=== PATIENT | female | born 1945 | race Caucasian/White ===

== ENCOUNTER 2016-12-24 15:17 | Inpatient (IN) | payer OTHER, MEDICARE ==
[~2016-12-24] VITALS: Ht 157.5 cm; Wt 65.7 kg
[~2016-12-24 15:17] MED LIST: CALC600T55 CHEW; OMEG340C PO; PRIN5TAB PO; ZETI10TA5 PO; ZOFR4TAB3 SL; [UNRECOGNIZED DRUG - CODE] PO
[2016-12-25] MEDS ORDERED: GEMF600T PO (09:23)
[2016-12-25] MEDS ORDERED: METO50TA11 PO (09:23)
[2016-12-25] MEDS ORDERED: ALPR0.25 PO (09:23)
[2016-12-25] MEDS ORDERED: DIPH25CA PO (09:23)
[2016-12-25] MEDS ORDERED: GLUC15009 PO (09:23)
[2016-12-25] MEDS ORDERED: NEXI20CA PO (09:23)
[2016-12-25] MEDS ORDERED: ZOLE5P IV (09:23)
[2016-12-25] MEDS ORDERED: ASPI1TAB69 PO (09:23)
[2016-12-25] MEDS ORDERED: GAS-125C3 PO (09:23)
[2016-12-28] VITALS (10 sets, daily range): BP systolic 107–163; BP diastolic 52–83; PULSE 80–114; RESP 16–18; TEMP 97.5–98; O2SAT 96–99
[2016-12-28] MEDS ORDERED: ceFAZolin 2 GM PREMIX 50 ML IV SCH (07:00)
[2016-12-28] MEDS ORDERED: CLINDAMYCIN 300 MG/NS 100 ML IV SCH ×2 (07:00)
[2016-12-28] MEDS ORDERED: METOPROLOL TARTRATE 25 MG TAB PO PRN (07:15)
[2016-12-28] MEDS ORDERED: INSULIN HUMAN REGULAR 1,000 UNITS/10 ML VIAL SQ PRN (07:15)
[2016-12-28] MEDS: LACTATED RINGER'S 1000 ML IV SCH (07:15)
[2016-12-28] MEDS ORDERED: SODIUM CHLORID 0.9% 500 ML IV SCH (07:15)
--- NOTE | 2016-12-28 07:50 | PD.HP.UP ---
H&P Update Note The Pre-Admit History and Physical Examination regarding the above named patient was reviewed (including, but not limited to, vital signs, heart, lungs, co-morbid conditions), and upon re-examination it is noted that: the patient's condition has not significantly changed since the last examination. Vanna Zepeda MD Dec 28, 2016 07:50
[2016-12-28] MEDS ORDERED: ONDANSETRON HCL 4 MG/2 ML VIAL ONE (07:57)
[2016-12-28] MEDS ORDERED: SUGAMMADEX SODIUM 200 MG/2 ML VIAL IV PUSH ONE ×2 (07:57)
[2016-12-28] MEDS ORDERED: MIDAZOLAM HCL 2 MG/2 ML VIAL ONE (07:57)
[2016-12-28] MEDS ORDERED: HYDROmorphone HCL PF 2 MG/ML VIAL ONE (07:57)
[2016-12-28] MEDS ORDERED: fentaNYL CITRATE 250 MCG/5 ML AMP ONE ×2 (07:57→13:49)
[2016-12-28] MEDS ORDERED: DEXAMETHASONE SOD PHOS 4 MG/ML VIAL ONE (07:58)
[2016-12-28] MEDS ORDERED: ACETAMINOPHEN 1000 MG/100 ML VIAL IV ONE (07:58)
[2016-12-28] MEDS ORDERED: FAMOTIDINE 20 MG/2 ML VIAL ONE (07:58)
[2016-12-28] MEDS ORDERED: ceFAZolin INJ 1,000 MG VIAL IV ONE ×2 (09:15→13:15)
[2016-12-28] MEDS ORDERED: ePHEDrine/NS 25 MG/5 ML SYR IV ONE (12:00)
[2016-12-28] MEDS ORDERED: PHENYLEPH/NS 1000 MCG/10 ML SYR IV ONE (12:00)
[2016-12-28] MEDS ORDERED: PROPOFOL 200 MG/20 ML AMP IV ONE (12:00)
[2016-12-28] MEDS ORDERED: POTASSIUM CHLOR 20 MEQ PREMIX 100 ML IV PRN (13:00)
[2016-12-28] MEDS ORDERED: BENZOCAINE 6 MG/MENTHOL 10 MG LOZENGE SUCK-ON PRN (13:00)
[2016-12-28] MEDS ORDERED: ENALAPRILAT 2.5 MG/2 ML VIAL IV PRN (13:00)
[2016-12-28] MEDS ORDERED: diphenhydrAMINE HCL 50 MG/ML VIAL IV PRN (13:00)
[2016-12-28] MEDS ORDERED: ACETAMINOPHEN 325 MG TAB PO PRN (13:00)
[2016-12-28] MEDS: SODIUM CHLORIDE 0.9% FLUSH 5 ML FLUSH IVF SCH ×2 (13:00→20:27)
[2016-12-28] MEDS ORDERED: NALOXONE HCL 0.4 MG/ML AMP IV PRN (13:00)
[2016-12-28] MEDS ORDERED: Post-op Orders (for Pharmacy) MISC XX ONE (13:00)
[2016-12-28] MEDS ORDERED: SODIUM CHLORIDE 0.9% FLUSH 5 ML FLUSH IVF PRN (13:00)
[2016-12-28] MEDS ORDERED: KETOROLAC TROMETHAMINE 30 MG/ML (IVP) VIAL IVP PRN (13:00)
[2016-12-28] MEDS ORDERED: POTASSIUM CHLOR 40 MEQ PREMIX 100 ML IV PRN (13:00)
[2016-12-28] MEDS ORDERED: *MEPERIDINE 25 MG INJ VIAL PERIprocedural Use ONLY ONE (13:28)
[2016-12-28] MEDS ORDERED: *morphine SULFATE 8 MG/ML PERIprocedure ONLY ONE (13:33)
[2016-12-28] MEDS ORDERED: *RESP: ALBUTEROL 2.5 MG/3 ML NEB (PRN) PERIprocedural Use ONLY NEB ONE (13:39)
[2016-12-28] MEDS ORDERED: DO NOT ADM ANY ANTICOAGULANT DRUGS XX PRN (13:45)
[2016-12-28] MEDS ORDERED: *hydrOXYzine 25 MG VIAL PERIprocedural Use ONLY IM ONE (13:59)
[2016-12-28] MEDS: PCA - TOTAL MG MORPHINE DELIVERED PER SHIFT SCH (14:00)
[2016-12-28 14:02] LABS: BASOPHIL # 0.1 TH/MM3 (0-0.2); BASOPHIL % 0.6 % (0.0-2.0); EOSINOPHIL % 0.1 % (0.0-4.0); HEMATOCRIT 40.1 % (35.0-46.0); HEMO FLAGS DIFF FINAL; LYMPH % 5.5 % (9.0-44.0); LYMPHOCYTE # 1.2 TH/MM3 (1.0-4.8); MEAN CELL VOLUME 85.3 FL (80.0-100.0); MEAN CORPUSCULAR HEMOGLOBIN 28.4 PG (27.0-34.0); MEAN CORPUSCULAR HGB CONC 33.3 % (32.0-36.0); MONO % 3.9 % (0.0-8.0); NEUT % 89.9 % (16.0-70.0); PLATELET COUNT 379 TH/MM3 (150-450); RED BLOOD COUNT 4.71 MIL/MM3 (4.00-5.30); RED CELL DISTRIBUTION WIDTH 14.1 % (11.6-17.2); WHITE BLOOD COUNT 22.3 TH/MM3 (4.0-11.0)
[2016-12-28 14:25] LABS: BICARBONATE 21.6 MEQ/L (21.0-32.0); POTASSIUM 4.1 MEQ/L (3.5-5.1)
[2016-12-28] MEDS: D5-NS + KCL 20 MEQ INJ 1,000 ML IV SCH ×2 (14:34→22:49)
[2016-12-28] MEDS: MORPHINE SULFATE 30 MG/30 ML PCA IV SCH (14:41)
[2016-12-28] MEDS: CLINDAMYCIN INJ 300 MG in SODIUM CHLORIDE 0.9% INJ 100 ML IV SCH (15:20)
[2016-12-28] MEDS: ONDANSETRON HCL 4 MG/2 ML VIAL IV PRN (15:45)
[2016-12-29] VITALS (25 sets, daily range): BP systolic 90–125; BP diastolic 51–59; PULSE 82–105; RESP 16–20; TEMP 98.3–99.5; O2SAT 93–99
[2016-12-29] MEDS: CLINDAMYCIN INJ 300 MG in SODIUM CHLORIDE 0.9% INJ 100 ML IV SCH ×3 (00:46→19:11)
[2016-12-29] MEDS: LACTATED RINGER'S 1000 ML IV SCH (07:15)
[2016-12-29 08:03] LABS: AUTOMATED NEUTROPHIL # 8.6 TH/MM3 (1.8-7.7); BASOPHIL % 0.3 % (0.0-2.0); EOSINOPHIL % 0.3 % (0.0-4.0); HEMATOCRIT 34.6 % (35.0-46.0); HEMO FLAGS DIFF FINAL; LYMPH % 6.9 % (9.0-44.0); LYMPHOCYTE # 0.7 TH/MM3 (1.0-4.8); MEAN CELL VOLUME 86.1 FL (80.0-100.0); MEAN CORPUSCULAR HEMOGLOBIN 28.5 PG (27.0-34.0); MONO % 8.2 % (0.0-8.0); NEUT % 84.3 % (16.0-70.0); PLATELET COUNT 240 TH/MM3 (150-450); RED BLOOD COUNT 4.01 MIL/MM3 (4.00-5.30); RED CELL DISTRIBUTION WIDTH 14.1 % (11.6-17.2); WHITE BLOOD COUNT 10.2 TH/MM3 (4.0-11.0)
[2016-12-29 08:33] LABS: BICARBONATE 22.7 MEQ/L (21.0-32.0); POTASSIUM 4.1 MEQ/L (3.5-5.1)
[2016-12-29 08:57] LABS: CALCIUM-PROTEIN CORRECTED 7.9 MG/DL (8.5-10.1)
[2016-12-29] MEDS: PANTOPRAZOLE SODIUM 40 MG VIAL IVP SCH (09:00)
[2016-12-29] MEDS: LISINOPRIL 5 MG TAB PO SCH (09:00)
[2016-12-29] MEDS: METOPROLOL SUCCINATE 50 MG EXTENDED RELEASE TAB PO SCH (12:25)
[2016-12-29] MEDS: HEPARIN SODIUM - SQ 10,000 UNITS/ML VIAL SQ SCH (12:25)
[2016-12-29] MEDS: SODIUM CHLORIDE 0.9% FLUSH 5 ML FLUSH IVF SCH ×2 (12:26→19:36)
[2016-12-29] MEDS: D5-NS + KCL 20 MEQ INJ 1,000 ML IV SCH ×2 (12:27→19:33)
[2016-12-29] MEDS: PCA - TOTAL MG MORPHINE DELIVERED PER SHIFT SCH ×2 (18:00→19:36)
[2016-12-29] MEDS: ONDANSETRON HCL 4 MG/2 ML VIAL IV PRN (19:33)
[2016-12-29] MEDS: DEXT 5%-NACL 0.9% 1000 ML INJ 1,000 ML IV SCH (23:15)
[2016-12-30] VITALS (7 sets, daily range): BP systolic 115–145; BP diastolic 53–66; PULSE 93–122; RESP 18–24; TEMP 97.4–98.4; O2SAT 91–98
[2016-12-30] MEDS: MORPHINE SULFATE 30 MG/30 ML PCA IV SCH (02:29)
[2016-12-30] MEDS: ONDANSETRON HCL 4 MG/2 ML VIAL IV PRN (04:40)
[2016-12-30] MEDS: D5-NS + KCL 20 MEQ INJ 1,000 ML IV SCH (04:43)
[2016-12-30 05:19] LABS: BASOPHIL # 0.1 TH/MM3 (0-0.2); BASOPHIL % 0.8 % (0.0-2.0); EOSINOPHIL # 0.2 TH/MM3 (0-0.4); HEMATOCRIT 34.8 % (35.0-46.0); HEMO FLAGS DIFF FINAL; LYMPHOCYTE # 0.6 TH/MM3 (1.0-4.8); MEAN CELL VOLUME 85.3 FL (80.0-100.0); MEAN CORPUSCULAR HEMOGLOBIN 28.4 PG (27.0-34.0); MEAN CORPUSCULAR HGB CONC 33.3 % (32.0-36.0); NEUT % 82.2 % (16.0-70.0); PLATELET COUNT 229 TH/MM3 (150-450); RED BLOOD COUNT 4.08 MIL/MM3 (4.00-5.30); RED CELL DISTRIBUTION WIDTH 14.2 % (11.6-17.2); WHITE BLOOD COUNT 9.8 TH/MM3 (4.0-11.0)
[2016-12-30 05:34] LABS: BICARBONATE 21.7 MEQ/L (21.0-32.0); POTASSIUM 4.6 MEQ/L (3.5-5.1)
[2016-12-30] MEDS: PCA - TOTAL MG MORPHINE DELIVERED PER SHIFT SCH (06:00)
[2016-12-30] MEDS: LACTATED RINGER'S 1000 ML IV SCH (06:59)
[2016-12-30] MEDS: DEXT 5%-NACL 0.9% 1000 ML INJ 1,000 ML IV SCH ×3 (06:59→23:15)
[2016-12-30] MEDS: PANTOPRAZOLE SODIUM 40 MG VIAL IVP SCH (08:45)
[2016-12-30] MEDS: LISINOPRIL 5 MG TAB PO SCH (08:45)
[2016-12-30] MEDS: METOPROLOL SUCCINATE 50 MG EXTENDED RELEASE TAB PO SCH (08:45)
[2016-12-30] MEDS: SODIUM CHLORIDE 0.9% FLUSH 5 ML FLUSH IVF SCH ×2 (08:45→21:00)
[2016-12-30] MEDS: ACETAMINOPHEN/HYDROcodone 325 MG/5 MG TAB PO PRN ×3 (09:38→22:35)
[2016-12-30] MEDS: SCOPOLAMINE 1.5 MG PATCH TD SCH (09:39)
[2016-12-30] MEDS: HEPARIN SODIUM - SQ 10,000 UNITS/ML VIAL SQ SCH ×3 (11:42→22:34)
--- NOTE | 2016-12-30 19:46 | HHI.PR ---
Subjective Remarks C/R Surg POD # 2 afebrile, VSS UO good - means dc'd no flatus Objective - Vital Signs Date Time Temp Pulse Resp B/P Pulse Ox O2 Delivery O2 Flow Rate FiO2 12/30/16 16:29 16 12/30/16 16:00 97.6 97 136/64 94 12/30/16 08:00 Nasal Cannula 2.00 Result Diagram: 12/30/164 12/30/16443 Objective Remarks PE alert Abd - soft, wounds clean, tender Rt flank A/P Assessment and Plan Imp: adv diet dc IVF PO Darryn Rutherford MD Dec 30, 2016 19:46
[2016-12-31] VITALS (7 sets, daily range): BP systolic 129–154; BP diastolic 63–85; PULSE 88–106; RESP 18–20; TEMP 97.1–98.2; O2SAT 93–97
[2016-12-31] MEDS: ACETAMINOPHEN/HYDROcodone 325 MG/5 MG TAB PO PRN ×4 (03:56→21:13)
[2016-12-31 05:20] LABS: AUTOMATED NEUTROPHIL # 6.4 TH/MM3 (1.8-7.7); BASOPHIL % 0.3 % (0.0-2.0); EOSINOPHIL # 0.2 TH/MM3 (0-0.4); HEMATOCRIT 32.1 % (35.0-46.0); HEMO FLAGS DIFF FINAL; LYMPH % 5.5 % (9.0-44.0); LYMPHOCYTE # 0.4 TH/MM3 (1.0-4.8); MEAN CELL VOLUME 85.1 FL (80.0-100.0); MEAN CORPUSCULAR HEMOGLOBIN 28.8 PG (27.0-34.0); MEAN CORPUSCULAR HGB CONC 33.9 % (32.0-36.0); MONO % 8.7 % (0.0-8.0); NEUT % 83.5 % (16.0-70.0); PLATELET COUNT 213 TH/MM3 (150-450); RED BLOOD COUNT 3.77 MIL/MM3 (4.00-5.30); RED CELL DISTRIBUTION WIDTH 14.1 % (11.6-17.2); WHITE BLOOD COUNT 7.6 TH/MM3 (4.0-11.0)
[2016-12-31 05:52] LABS: BICARBONATE 21.8 MEQ/L (21.0-32.0); POTASSIUM 4.6 MEQ/L (3.5-5.1)
[2016-12-31] MEDS: D5-NS + KCL 20 MEQ INJ 1,000 ML IV SCH ×3 (07:08→23:37)
[2016-12-31] MEDS: LACTATED RINGER'S 1000 ML IV SCH (07:15)
[2016-12-31] MEDS: DEXT 5%-NACL 0.9% 1000 ML INJ 1,000 ML IV SCH ×3 (07:15→23:37)
[2016-12-31] MEDS: SODIUM CHLORIDE 0.9% FLUSH 5 ML FLUSH IVF SCH ×2 (07:38→20:45)
[2016-12-31] MEDS: LISINOPRIL 5 MG TAB PO SCH (08:21)
[2016-12-31] MEDS: METOPROLOL SUCCINATE 50 MG EXTENDED RELEASE TAB PO SCH (08:21)
[2016-12-31] MEDS: PANTOPRAZOLE SODIUM 40 MG VIAL IVP SCH (08:22)
[2016-12-31] MEDS: HEPARIN SODIUM - SQ 10,000 UNITS/ML VIAL SQ SCH (11:50)
--- NOTE | 2016-12-31 14:47 | HHI.PR ---
Subjective Remarks POD#3 s/p robotic sigmoid resection weak Objective Vital Signs Date Time Temp Pulse Resp B/P Pulse Ox O2 Delivery O2 Flow Rate FiO2 12/31/16 12:27 97.8 95 20 141/66 97 12/31/16 09:35 97 Nasal Cannula 2.00 12/31/16 09:11 98.2 106 20 154/85 94 12/31/16 00:00 97.7 100 18 129/63 94 12/30/16 21:21 98 Nasal Cannula 2.00 12/30/16 20:00 97.9 100 18 144/66 97 12/30/16 16:29 16 12/30/16 16:00 97.6 97 20 136/64 94 I/O 12/30/16 12/30/16 12/30/16 12/31/16 12/31/16 12/31/16 07:00 15:00 23:00 07:00 15:00 23:00 Intake Total 1166 ml 1495 ml 446 ml 879 ml Output Total 375 ml 600 ml 450 ml 250 ml Balance 791 ml 895 ml -4 ml 629 ml Intake Oral 240 ml 800 ml 120 ml 240 ml IV Total 926 ml 695 ml 326 ml 639 ml Output Urine Total 375 ml 600 ml 450 ml 250 ml # Bowel Movements 0 0 0 0 Result Diagram: 12/31/1644412/31/16444 Objective Remarks Abdomen soft, nondistended, tender wounds clean Assessment and Plan Assessment and Plan Still quite weak Will need inpatient rehab Vanna Zepeda MD Dec 31, 2016 14:47
[2016-12-31 16:42] LABS: BACTERIA, URINE FEW /hpf; BLOOD, URINE LARGE (NEG); COMMENT (UR) CULTURE INDICATED; CULTURE IF INDICATED CULTURE INDICATED; GLUCOSE,URINE NEG (NEG); KETONE, URINE NEG (NEG); MUCUS URINE FEW /lpf (OCC); NITRITE,URINE NEG (NEG); PH, URINE 5.5 (5.0-8.5)
[2016-12-31 16:43] LABS: URINE COLOR RED (YELLW/STRAW)
[2017-01-01] VITALS (9 sets, daily range): BP systolic 136–197; BP diastolic 56–78; PULSE 88–90; RESP 17–18; TEMP 97.1–98.3; O2SAT 92–97
[2017-01-01] MEDS: HEPARIN SODIUM - SQ 10,000 UNITS/ML VIAL SQ SCH ×2 (00:30→12:17)
[2017-01-01] MEDS: DEXT 5%-NACL 0.9% 1000 ML INJ 1,000 ML IV SCH ×3 (06:07→23:15)
[2017-01-01] MEDS: LACTATED RINGER'S 1000 ML IV SCH (06:07)
[2017-01-01] MEDS: ACETAMINOPHEN/HYDROcodone 325 MG/5 MG TAB PO PRN ×3 (06:10→20:12)
[2017-01-01] MEDS: PANTOPRAZOLE SODIUM 40 MG VIAL IVP SCH (09:52)
[2017-01-01] MEDS: SODIUM CHLORIDE 0.9% FLUSH 5 ML FLUSH IVF SCH ×2 (09:52→20:08)
[2017-01-01] MEDS: LISINOPRIL 5 MG TAB PO SCH (09:52)
[2017-01-01] MEDS: METOPROLOL SUCCINATE 50 MG EXTENDED RELEASE TAB PO SCH (09:52)
[2017-01-01] MEDS ORDERED: IOHEXOL 350 MG/ML 10 ML VIAL (for RAD DIAG) IV ONE (10:10)
--- NOTE | 2017-01-01 10:41 | RADRPT ---
EXAM DATE/TIME: 01/01/2017 10:06 [place] COMPARISON: Prior study August 2016. INDICATIONS : Abdominal pain. Right ureteral stone or tumor IV CONTRAST: 85 cc Omnipaque 350 (iohexol) IV ORAL CONTRAST: No oral contrast ingested. RADIATION DOSE: 8 CTDIvol (mGy) MEDICAL HISTORY : Cardiovascular disease. Hypertension. SURGICAL HISTORY : None. ENCOUNTER: Initial ACUITY: 1 day PAIN SCALE: 5/10 LOCATION: Diffuse abdomen TECHNIQUE: Volumetric scanning of the abdomen and pelvis was performed. Using automated exposure control and adjustment of the mA and/or kV according to patient size, radiation dose was kept as low as reasonably achievable to obtain optimal diagnostic quality images. FINDINGS: CT scan abdomen and pelvis was performed with IV and oral contrast. There is a wedge-shaped area of low density within the right lobe of the liver I suspect focal fatty infiltration. There is a tiny cyst left lobe of the liver unchanged. No concerning solid mass is id entified. The gallbladder is decompressed. The adrenal glands, pancreas and kidneys are unremarkable. Spleen is unremarkable. There is some fluid inflammation in the right chest wall. There are small bilateral pleural effusion s with bilateral lower lobe passive atelectasis. Correlate for etiology for right flank area of nabil kayley or swelling. The patient has had previous rectosigmoid anastomosis. There is a tiny amount of air within the bladder. Small bowel is nondilated. There is some mild presacral soft tissue inflammation. There is a tiny amount of air in the presacra l space of uncertain etiology. CONCLUSION: 1. Rectosigmoid anastomosis without evidence of surrounding wall thickening. There is some inflamma tion in the perirectal soft tissues and a small amount of air of the presacral fat of uncertain etiol ogy. 2. Soft-tissue hematoma or inflammation of the right side-wall, new from August of uncertain etio logy. 3. No evidence of renal obstruction, stone or mass. 4. Wedge-shaped fatty infiltrate in the right lobe of the liver. Please see above. Navneet Bangura MD on January 01, 2017 at 10:25 Board Certified Radiologist. This report was verified electronically.
[2017-01-01] MEDS: ENALAPRILAT 1.25 MG/ML VIAL IV PRN ×2 (12:17→20:46)
[2017-01-01] MEDS: D5-NS + KCL 20 MEQ INJ 1,000 ML IV SCH (16:28)
--- NOTE | 2017-01-01 23:30 | HHI.PR ---
Subjective Remarks POD#4 s/p robotic sigmoid resection reports gas pain, right sided mainly Objective Vital Signs Date Time Temp Pulse Resp B/P Pulse Ox O2 Delivery O2 Flow Rate FiO2 01/01/17 21:12 17 01/01/17 20:00 97.9 88 18 171/74 92 01/01/17 18:26 92 21 01/01/17 16:00 97.6 89 17 146/75 92 01/01/17 13:20 141/56 01/01/17 12:00 97.7 88 18 197/78 93 01/01/17 08:47 94 Nasal Cannula 2.00 01/01/17 08:00 97.8 89 17 172/74 97 01/01/17 00:00 98.3 89 18 136/65 94 I/O 12/31/16 12/31/16 12/31/16 01/01/17 01/01/17 01/01/17 06:59 14:59 22:59 06:59 14:59 22:59 Intake Total 879 ml 120 ml 240 ml 120 ml 600 ml Output Total 250 ml 650 ml 200 ml 500 ml 750 ml Balance 629 ml -530 ml 40 ml -380 ml -150 ml Intake Oral 240 ml 120 ml 240 ml 120 ml 600 ml IV Total 639 ml 0 ml Output Urine Total 250 ml 650 ml 200 ml 500 ml 750 ml # Voids 4 # Bowel Movements 0 2 0 0 0 Result Diagram: 12/31/1644412/31/16444 Objective Remarks Abdomen soft, nondistended, tender wounds clean Assessment and Plan Assessment and Plan CT scan to evaluate urinary system without evidence of stone or mass, normal postoperative changes otherwise Ready for transfer to rehab or discharge home in am. Vanna Zepeda MD Jan 01, 2017 23:30
[2017-01-02] MEDS: HEPARIN SODIUM - SQ 10,000 UNITS/ML VIAL SQ SCH ×2 (00:20→12:00)
[2017-01-02] MEDS: ACETAMINOPHEN/HYDROcodone 325 MG/5 MG TAB PO PRN ×3 (02:06→16:36)
[2017-01-02 04:00] VITALS: BP 141/67; PULSE 85; RESP 16; TEMP 97.9; O2SAT 94
[2017-01-02 08:00] VITALS: BP 181/82; PULSE 87; RESP 20; TEMP 98.1; O2SAT 94
--- NOTE | 2017-01-02 08:36 | HHI.PR ---
Subjective Remarks POD#5 s/p robotic sigmoid resection Lots of anxiety, doesn't want to go home Objective Vital Signs Date Time Temp Pulse Resp B/P Pulse Ox O2 Delivery O2 Flow Rate FiO2 01/02/17 08:00 98.1 87 20 181/82 94 01/02/17 04:00 97.9 85 16 141/67 94 01/02/17 03:06 18 01/01/17 23:43 97.1 90 18 156/70 93 01/01/17 20:00 97.9 88 18 171/74 92 01/01/17 18:26 92 21 01/01/17 16:00 97.6 89 17 146/75 92 01/01/17 13:20 141/56 01/01/17 12:00 97.7 88 18 197/78 93 01/01/17 08:47 94 Nasal Cannula 2.00 I/O 01/01/17 01/01/17 01/01/17 01/02/17 01/02/17 01/02/17 07:00 15:00 23:00 07:00 15:00 23:00 Intake Total 120 ml 600 ml 360 ml 240 ml Output Total 500 ml 750 ml 600 ml 800 ml Balance -380 ml -150 ml -240 ml -560 ml Intake Oral 120 ml 600 ml 360 ml 240 ml Output Urine Total 500 ml 750 ml 600 ml 800 ml # Bowel Movements 0 0 0 0 Result Diagram: 12/31/1644412/31/16444 Objective Remarks Abdomen soft, nondistended, tender wounds clean Assessment and Plan Assessment and Plan Tolerating PO Afeb BP slightly up - will give lasix, partially anxiety Pt concerned about UIT - check UA OK for transfer to rehab or discharge home Vanna Zepeda MD Jan 02, 2017 08:36
--- NOTE | 2017-01-02 08:37 | HHI.FF ---
Face to Face Verification Diagnosis: (1) Diverticulitis (2) Impaired mobility and activities of daily living Physical Therapy Order: Evaluate and Treat, Strength and gait training I have seen patient Diane Parker on 01/02/17. My clinical findings support the need for the requested home health care services because: Deconditioned w/ increased weakness Limited ability to care for self I certify that my clinical findings support that this patient is homebound because: Post-op weakness Vanna Zepeda MD Jan 02, 2017 08:37
[2017-01-02] MEDS ORDERED: HYDR-3516 PO (08:39)
[2017-01-02] MEDS ORDERED: ALPRAZolam 0.25 MG TAB PO PRN (08:45)
[2017-01-02] MEDS ORDERED: PILL SPLITTER OTHER PRN (09:00)
[2017-01-02] MEDS: D5-NS + KCL 20 MEQ INJ 1,000 ML IV SCH (09:08)
[2017-01-02] MEDS: PANTOPRAZOLE SODIUM 40 MG VIAL IVP SCH (09:54)
[2017-01-02] MEDS: METOPROLOL SUCCINATE 50 MG EXTENDED RELEASE TAB PO SCH (09:56)
[2017-01-02] MEDS: SCOPOLAMINE 1.5 MG PATCH TD SCH (09:56)
[2017-01-02] MEDS: LISINOPRIL 5 MG TAB PO SCH (09:56)
[2017-01-02] MEDS: SODIUM CHLORIDE 0.9% FLUSH 5 ML FLUSH IVF SCH (09:57)
[2017-01-02] MEDS ORDERED: REMOVE OLD PATCH T-DERMAL SCH (10:00)
[2017-01-02 12:00] VITALS: BP 172/64; PULSE 96; RESP 17; TEMP 97.1; O2SAT 92
--- NOTE | 2017-01-02 13:49 | MP ---
cc: DYLAN SALAS DATE OF SURGERY: 12/28/2016 PREOPERATIVE DIAGNOSIS Diverticulitis. POSTOPERATIVE DIAGNOSIS Diverticulitis. PROCEDURE Cystoscopy with placement of left ureteral catheter. SURGEON Dr. Salas. ANESTHESIA General. FLUIDS 100 ccs crystalloid. BLOOD LOSS No blood loss. COMPLICATIONS No complications. FINDINGS A 5-German open-ended catheter was inserted up on the left side. The right side I was unable to pass the right ureteral catheter, there appeared to be obstruction in the distal ureter. She tolerated the procedure well, there were no complications. INDICATION Diane Parker is a 71-year-old female with history of diverticulitis, scheduled to undergo robotic colon resection by Dr. Zepeda. Requests were made for urology to place bilateral ureteral catheters. PROCEDURE The patient was brought to the operating room, identified by myself as Diane Parker. She was placed in dorsal lithotomy position, prepped and draped in the usual sterile fashion, received preprocedure antibiotics, and general endotracheal tube anesthesia was administered. A 22-German cystoscope was inserted in the bladder and li cystoscopy did not reveal any abnormalities. Initially the right ureteral catheter was inserted into the right ureteral orifice but only slid up approximately 3 cm. An 035 sensor wire was attempted to pass and it went up a little further but then would not go up any further. I was unable to advance the right ureteral catheter along the wire any further. This was aborted and the left open ended catheter was placed into the left ureteral orifice and using the 035 sensor wire, the wire was slid up and the catheter was placed over the wire without difficulty. The wire was removed. The Bennett was inserted and she tolerated the procedure well. Would recommend a CT scan to evaluate for the presence of a stone in the future. Dylan ROSSI/JACQUELYN /9:34 AM /1:30 PM
[2017-01-02 16:00] VITALS: BP 182/78; PULSE 98; RESP 17; TEMP 97.4; O2SAT 94
--- NOTE | 2017-01-02 20:51 | MP ---
cc: AMADOR ZEPEDA M.D., PATRICIA DATE OF SURGERY: 12/28/2016 PREOPERATIVE DIAGNOSIS: Colon stricture. POSTOPERATIVE DIAGNOSIS: 1. Colon stricture. 2. Diverticulitis. 3. Adhesions. OPERATION: 1. Laparoscopic/robotic extensive lysis of adhesions. 2. Robotic low anterior resection. SURGEON: Mike Zepeda MD. BULBS FARMWORKER: Ilya. ANESTHESIA: General per ET tube. ESTIMATED BLOOD LOSS: 100 cc. OPERATIVE INDICATIONS The patient is a 71 year-old female with a symptomatic stricture in the mid sigmoid colon. OPERATIVE FINDINGS The liver was visibly normal. The gallbladder was not visualized. The uterus and ovaries were visibly normal. The sigmoid colon was adherent to the left pelvic sidewall, with a phlegmon that folded over and wrapped back around the rectum on the right, with some adherence to the right pelvic sidewall as well. OPERATIVE COURSE The patient was brought to the operating room, and placed in the supine position. After induction of general anesthesia, the patient was placed in Addy stirrups and all bony prominences were carefully padded. The skin of the anterior abdominal wall, as well as the perineal area, was then prepped and draped in the usual sterile fashion. Dr. Salas came in and performed cystoscopy with placement of a left ureteral catheter. On the right side, he was not able to advance the catheter and indeed when he did put some pressure on it and pulled back, apparent purulence came out of the ureter. A sight was then chosen for the camera, being located, 2 cm to the right and above the umbilicus. A 10/12 trocar was placed through the incision, under direct vision using the laparoscope. CO2 insufflation was then begun and a brief abdominal survey was performed. Nothing was noted that would preclude the laparoscope approach. The right sided ports were then placed. The #1 port was placed just inside the right anterior superior iliac spine, with a 10/12 port. The #5 assist port was placed under the right costal margin, equal distance to the #1 and the camera port. The patient was hydroplaned with head down and some adhesions of the omentum to the left lower quadrant were divided using the electrocautery. The omentum was brought up and over the transverse colon. The patient was hydroplaned slightly to the right and the small bowel was brought up and out of the pelvis. After evaluation it became clear that this was diverticular, and so we would take the vessels with the stapler. The descending colon was then evaluated and I was not sure whether or not we would need to take the splenic flexure, so the remaining ports were placed as follows: The #3 port was placed in the left anterior axillary line, in line with the umbilicus, and the #2 port was placed two fingerbreadths above the umbilical line, in the left midclavicular line. The small bowel was brought up-and-over the pelvis and to the right until we had good visualization of the base of the pedicle. The robot was then docked. The mesentery on the right was then scored and dissection continued in the posterior plane, gradually and slowly dissecting the vessels free until the left ureter was clearly identified and swept away from the specimen. A window was then made around the vessels and the [place] Endostapler was placed across the vessels. This was closed, held for 30 seconds, fired and removed. Dissection was then continued posterior to the sigmoid and the rectum, dissecting down onto the level of the distal rectum and up around the right side, freeing it from the right ovary and from the posterior wall of the uterus. However, there was still quite a bit of phlegmon attached to the left pelvic sidewall. The sigmoid colon was retracted to the right, and the lateral peritoneal attachments were dissected free down to the level of the phlegmon, which was slowly and painstakingly dissected free until we could visualize the distal rectum below the area of inflammation. A sponge stick was placed in the rectum, and a site was then chosen for division of the rectum. The mesentery at this level was divided using the harmonic scalpel, and an [place] Endostapler was placed across the bowel at this level. The stapler was then advanced to the area and there was a dog ear where it did not lay quite the way I liked, and so I elected to resect an additional 2-3 cm. The mesentery was cleared back an additional 2 to 3 cm, and a reload of the stapler was placed across the bowel at this level. A small intervening piece of stapled bowel was then removed. The stapler was again advanced and although there was a small dog ear, it was something that would be able to be pulled in with a stitch. The posterior attachments of the descending colon were then dissected free, up to the level of but not around the splenic flexure, until we had good mobility of the descending colon and sigmoid colon. The bowel proximal to the area of inflammation was then examined and brought down to lie against the rectal stump and lay nicely without tension. All dissection beds were examined and no areas of significant bleeding were noted. The robot was then undocked. A 10 cm suprapubic incision was made and using electrocautery, dissection was carried down to the fascia of the anterior abdominal wall. The anterior fascia was then divided the length of the skin incision. The medial fibers of the rectus abdominis muscle were then divided and the posterior fascia/peritoneum was divided as well. Wound protector was placed and the proximal staple line of the bowel was grasped, and pulled up and out through the incision. A sight was chosen for division of the bowel, where it came down nicely to the pubic tubercle and there were no additional significant diverticuli. The mesentery at this level was serially divided and ligated using 0 Vicryl ties, and a pursestring stapling device was placed across the bowel. The distal bowel was occluded with a Jackelin clamp. The bowel was amputated. The bowel was taken to a back table where it was later opened. The anvil from the 29 EEA stapler was placed into the cut end of the bowel and the previously placed pursestring suture was secured. A stapler was then advanced through the anus and up to the rectal stump, and the spike was advanced just posterior to the staple line. The small dog ear was pulled in and sutured in place using 3-0 Vicryl. The anvil was then into the spike, being careful that the bowel was not twisted. The stapler was closed, held for 30 seconds, fired and removed, thus creating an enteroenterotomy. The anastomosis appeared pink and healthy circumferentially, and both anastomotic rings were complete. A small amount of warm normal saline was placed into the pelvis and air was insufflated into the rectum until gentle tension was noted on the anastomosis, with no sign of any leakage noted. The posterior fascia of the anterior abdominal wall incision was closed in running fashion using #1 PDS and the anterior fascial closure in running fashion using #1 PDS. The wounds were copiously irrigated with warm normal saline. The skin was closed in a running subcuticular fashion using 3-0 Vicryl and the trocar sites were closed in interrupted septic fashion using 3-0 Vicryl. Sterile dressings were then applied. All sponge, needle and sponge counts were correct and the patient was returned to the Post Anesthesia Care Unit in stable condition. MD ANJANA Sanchez/ALIN /1:00 PM /8:14 PM [facility]RAKE
--- NOTE | 2017-05-01 12:44 | MD ---
cc: AMADOR COX M.D. ADMISSION DATE: 12/28/2016 DISCHARGE DATE: 01/02/2017 ADMISSION DIAGNOSIS 1. Diverticulitis 2. Hypertension 3. COPD 4. Coronary artery disease 5. Gastroesophageal reflux disease 6. Colon stricture DISCHARGE DIAGNOSIS 1. Diverticulitis 2. Hypertension 3. COPD 4. Coronary artery disease 5. Gastroesophageal reflux disease 6. Colon stricture PROCEDURES PERFORMED 1. Cystoscopy with placement of bilateral ureteral catheters. 2. Laparoscopic/robotic lysis of adhesions 3. Robotic low anterior resection HOSPITAL COURSE The patient is a 70-year-old female with symptomatic stricture in the mid sigmoid colon. She was admitted to the hospital on the December after an outpatient bowel prep. She was taken to the operating room where she underwent the above-named procedures. Intraoperative findings included a phlegmonous sigmoid colon that was adherent to the left pelvic side wall with some adherence the right pelvic sidewall as well. Postoperatively, the patient did well with rapid return of bowel and bladder function. However, due to her overall weakness, it was felt prudent that she was discharged home with home health care. Final pathology revealed diverticulitis. MD ANJANA Sanchez/EDWARD /10:25 AM /12:41 PM MTDD
== END 2017-01-02 18:41 | DRG 330 ==
LOC: HSDI 12-28 06:39 → HCPC 12-28 15:45 → N07A 12-29 19:15
PROVIDERS: ADMIT Colon & Rectal Surgery; ATTEND Colon & Rectal Surgery
PROC: 0DNN4ZZ Release Sigmoid Colon, Percutaneous Endoscopic Approach (ICD-10-PCS; 2016-12-28)
PROC: 8E0W4CZ Robotic Assisted Procedure of Trunk Region, Percutaneous Endoscopic Approach (ICD-10-PCS; 2016-12-28)
PROC: 0T9B80Z Drainage of Bladder with Drainage Device, Via Natural or Artificial Opening Endoscopic (ICD-10-PCS; 2016-12-28)
PROC: 0DTN0ZZ Resection of Sigmoid Colon, Open Approach (ICD-10-PCS; principal; 2016-12-28 08:31)
PROC: 0DNP4ZZ Release Rectum, Percutaneous Endoscopic Approach (ICD-10-PCS; 2016-12-28 08:31)
DX: K57.32 Diverticulitis of large intestine without perforation or abscess without bleeding (principal); K56.5 Intestinal adhesions [bands] with obstruction (postinfection); J44.9 Chronic obstructive pulmonary disease, unspecified; I25.2 Old myocardial infarction; K21.9 Gastro-esophageal reflux disease without esophagitis; I10 Essential (primary) hypertension; E78.5 Hyperlipidemia, unspecified; F32.9 Major depressive disorder, single episode, unspecified; F41.9 Anxiety disorder, unspecified; Z87.891 Personal history of nicotine dependence; Z88.1 Allergy status to other antibiotic agents
CPT/HCPCS: 36415; 74178; 76937; 80048; 80053; 81001; 84155; 85025; 85610; 85730; 86850; 86900; 86901; 87086; 88307; 94150; 94640; C1769; C9113; J0131; J0690; J1100; J1170; J1644; J1885; J2175; J2250; J2270; J2370; J2405; J3010; J3410; J3480; J7120; J7613; Q9967

== ENCOUNTER → 2016-12-25 | Outpatient (CLI) | payer OTHER ==
[~2016-12-25] MED LIST changes: +ALPR0.25 PO; +ASPI1TAB69 PO; +DIPH25CA PO; +GAS-125C3 PO; +GAS-80CH CHEW; +GEMF600T PO; +GLUC15009 PO; +HYDR-3288 PO; +HYDR-3516 PO; +HYDR-3580 PO; +METO100T9 PO; +METO50TA11 PO; +NEXI20CA PO; +NORC5TAB PO; +SCOP1PAT2 T-DERMAL; +ZOLE5P IV
[2016-12-25 10:25] LABS: AUTOMATED NEUTROPHIL # 4.6 TH/MM3 (1.8-7.7); BASOPHIL # 0.1 TH/MM3 (0-0.2); BASOPHIL % 0.8 % (0.0-2.0); EOSINOPHIL # 0.2 TH/MM3 (0-0.4); EOSINOPHIL % 2.9 % (0.0-4.0); HEMATOCRIT 47.3 % (35.0-46.0); HEMO FLAGS DIFF FINAL; LYMPH % 14.9 % (9.0-44.0); MEAN CORPUSCULAR HEMOGLOBIN 28.3 PG (27.0-34.0); MEAN CORPUSCULAR HGB CONC 32.9 % (32.0-36.0); MONO % 10.6 % (0.0-8.0); NEUT % 70.8 % (16.0-70.0); PLATELET COUNT 358 TH/MM3 (150-450); RED CELL DISTRIBUTION WIDTH 14.3 % (11.6-17.2); WHITE BLOOD COUNT 6.6 TH/MM3 (4.0-11.0)
[2016-12-25 10:26] LABS: BLOOD, URINE NEG (NEG); GLUCOSE,URINE NEG (NEG); KETONE, URINE NEG (NEG); MUCUS URINE FEW /lpf (OCC); NITRITE,URINE NEG (NEG); PH, URINE 5.5 (5.0-8.5); SQUAMOUS EPITHELIAL CELL URINE <1 /hpf (0-5); URINE COLOR YELLOW (YELLW/STRAW)
[2016-12-25 10:27] LABS: COMMENT (UR) CULT NOT INDICATED; CULTURE IF INDICATED CULT NOT INDICATED
[2016-12-25 10:32] LABS: APTT (PATIENT) 28.9 SEC (24.3-30.1); PROTHROMBIN TIME - PATIENT 10.5 SEC (9.8-11.6)
[2016-12-25 11:02] LABS: ALKALINE PHOSPHATASE 106 U/L (45-117); ALT (GPT) 13 U/L (10-53); ANION GAP 8 MEQ/L (5-15); AST (GOT) 11 U/L (15-37); BICARBONATE 26.4 MEQ/L (21.0-32.0); BLOOD UREA NITROGEN 11 MG/DL (7-18); CHLORIDE 106 MEQ/L (98-107); GLOMERULAR FILTRATION RATE 83 ML/MIN (>89); GLUCOSE,FASTING 97 MG/DL (74-99); POTASSIUM 4.1 MEQ/L (3.5-5.1); SODIUM (NA) 140 MEQ/L (136-145); TOTAL BILIRUBIN ADULT 0.4 MG/DL (0.2-1.0)
== END ==
LOC: CPRE 08:48
PROVIDERS: ATTEND Colon & Rectal Surgery
DX: K57.32 Diverticulitis of large intestine without perforation or abscess without bleeding (principal); Z01.812 Encounter for preprocedural laboratory examination
CPT/HCPCS: 36415; 80053; 81001; 85025; 85610; 85730